=== PATIENT | male | born 1945 | race Caucasian/White ===

== ENCOUNTER 2024-03-30 14:57 | Emergency (ER) | payer MEDICARE, OTHER, SELFPAY ==
[2024-03-30 15:13] VITALS: BP 143/58; PULSE 58; RESP 18; TEMP 36.7; O2SAT 98
[2024-03-30 15:18] VITALS: BP 143/58; PULSE 58; RESP 18; TEMP 36.7; O2SAT 98
--- NOTE | 2024-03-30 15:30 | ED.GENADULT ---
HPI - General Adult General Chief complaint: Ear Stated complaint: Foreign Body in Left Ear Source: patient Mode of arrival: ambulatory Limitations: no limitations History of Present Illness HPI narrative: Patient presents with concerns that he may have cotton stuck in his left ear canal. Indicates he was cleaning his ears with a Q-tip just prior to arrival when he thinks the cotton from the Q-tip became caught in the left ear. He states he did not actually insert the q tip into the canal itself. He used his phone to better visualize the area and states that he did visualize cotton in the canal. Denies any pain, hearing loss, tinnitus, drainage Related Data Home Medications Medication Instructions Recorded Confirmed aspirin 81 mg tablet,delayed 81 mg DIRECTED 03/30/24 03/30/24 release (Adult Low Dose Aspirin) atorvastatin 20 mg tablet 20 mg DIRECTED 03/30/24 03/30/24 carvedilol 6.25 mg tablet 6.25 mg DIRECTED 03/30/24 03/30/24 niacin 1,000 mg tablet,extended 1,000 mg PO DIRECTED 03/30/24 03/30/24 release 24 hr Allergies Allergy/AdvReac Type Severity Reaction Status Date / Time No Known Allergies Verified 11/20/10 08:31 Review of Systems Review of Systems: CONSTITUTIONAL: Denies fever, chills, or sweats. EYES: Denies visual changes, redness, or discharge. ENT: Reports suspected cotton swab in the left ear canal. Denies any ear pain, tinnitus or hearing loss. Denies rhinorrhea, congestion, sore throat CARDIOVASCULAR: Denies chest pain, palpitations, or edema. RESPIRATORY: Denies cough or dyspnea. GASTROINTESTINAL: Denies abdominal pain, nausea, vomiting, or diarrhea. GENITOURINARY: Denies dysuria or hematuria. SKIN: Denies rash or itching. MUSCULOSKELETAL: Denies back pain, joint pain, or myalgia. NEUROLOGIC: Denies headache, numbness, dizziness, or weakness. PSYCHIATRIC: Denies anxiety or depression. [facility] Past Medical History Medical History Hyperlipidemia Hypertension Surgical History Surgical History No pertinent past surgical history Family History Family History Mother Family history non-contributory Social History Social History Substance use: never Living arrangements: with family Gender identity (if verbalized by the patient): Male Sexual Orientation (if Verbalized by the Patient): Straight or Heterosexual Spiritual care concerns: No Exam Narrative: GENERAL: Well-appearing, well-nourished, and in no acute distress. HEAD: Normocephalic, atraumatic. EYES: PERRLA and EOMI. ENT: Nares clear, no rhinorrhea or epistaxis. Mucous membranes moist. Oropharynx without tonsillar hypertrophy exudate or other lesions. Bilateral TMs pearly resendez nonbulging. I do not appreciate cotton nor any foreign body in the left ear canal NECK: Supple. No adenopathy or masses. No carotid bruits or JVD CHEST: Clear to auscultation. No respiratory distress. No wheezes rales or rhonchi HEART: Regular rate and rhythm. No murmur heard. Normal peripheral pulses. ABDOMEN: Soft, nontender, nondistended, normal active bowel sounds. EXTREMITIES: Normal range of motion. No edema. SKIN: Warm, dry, no rash. NEURO: No focal deficits. Alert and oriented x3. PSYCH: Normal mood and affect. Course Course Emergency Course: This is a 78-year-old male who presented for evaluation of a suspected cotton swab in the left ear canal. I do not appreciate cotton nor any foreign body in the left ear. His exam is normal. Advised not to stick anything in his ears. Follow-up with primary care provider and go the ER for hearing loss, tinnitus or other worrisome complaints. Patient in agreement with care. Level of Care: Express Care Visit Vital Signs Vital signs:
== END 2024-03-30 15:33 | disposition home or self-care (01) ==
PROVIDERS: Emergency Provider Nurse Practitioner; PCP Family Medicine
DX: Z71.1 Person with feared health complaint in whom no diagnosis is made (principal); E78.5 Hyperlipidemia, unspecified; I10 Essential (primary) hypertension; Z79.899 Other long term (current) drug therapy; Z79.82 Long term (current) use of aspirin
CPT/HCPCS: 99202; G0463